=== PATIENT | female | born 1965 | race Caucasian/White ===

== ENCOUNTER → 2016-09-18 12:41 | Outpatient (CLI) | payer MEDICAID ==
[2015-09-04 09:50] VITALS: BMI 30.8
[~2016-09-18 12:41] MED LIST: ASCORBIC ACID500 MG PO; FISH OIL 1,0001 CA1 PO; LYSINE1000 MG PO; MULTIPLE VITAMI1 TA1 PO; VITAMIN D31000 UNIT PO
== END | disposition home or self-care (01) ==
LOC: D.CT 12:41
DX: R10.9 Unspecified abdominal pain (principal)

== ENCOUNTER 2016-10-14 06:05 | Day surgery (SDC) | payer MEDICAID ==
[~2016-10-14] VITALS: Ht 160 cm; Wt 75.5 kg
[2016-10-14 07:39] LABS: HEMATOCRIT 42.7 % (36.0-48.0); HEMOGLOBIN 14.1 g/dL (12-16); MCH 31.3 pg (26.0-34.0); MCV 94.9 fL (80.0-100.0); MEAN PLATELET VOLUME 9.5 fL (7.4-10.4); RBC 4.5 10x6/uL (4.00-5.40); RDW 13.5 % (11.5-14.5); WBC 8.7 10x3/uL (4.8-10.8)
[2016-10-14 07:48] VITALS: BP 116/67; Ht 160 cm; Wt 75.5 kg
--- NOTE | 2016-10-14 10:42 | NUR ---
1020 AWAKE & ALERT. DRESSED SITTING UP IN CHAIR @ BEDSIDE. GIVEN DISCHARGE INSTRUCTIONS INCLUDING MED REC & D/C INSTRUCTIONS SHEET POST ENDOSCOPIC PROCEDURES. PT VOICED UNDERSTANDING. TO PRIVATE CAR PER WHEELCHAIR BY VOLUNTEER. HOME WITH MALE VISITOR. Robel ALMANZAR R.N.
--- NOTE | 2016-10-17 09:40 | OP ---
PATIENT NAME: EVON SOLER MEDICAL RECORD: [id number] :65 LOCATION:[facility] ADMISSION DATE: SURGEON: PAL JUSTICE MD DATE OF OPERATION: 10/14/2016 PREOPERATIVE DIAGNOSIS: History of colon polyps, in need of a surveillance colonoscopy. POSTOPERATIVE DIAGNOSES: History of colon polyps, in need of a surveillance colonoscopy with no new colonic polyps or masses. PROCEDURES: Total colonoscopy to cecum. SURGEON: Pal Justice MD REMOTE SENSING ADVISOR: None. BLOOD LOSS: Minimal. ANESTHESIA: IV sedation. COMPLICATIONS: None. Reason for the anesthesia staff being present during the procedure includes anxiety regarding the procedure. ENDOSCOPIC COURSE: The patient was conveyed to the endoscopy suite electively on 10/14/2016. IV sedation was induced by the anesthesia staff. The patient was placed in the Watts position. A digital rectal examination was performed. A colonoscope was inserted through the anus. It was easily advanced to the cecum. Following withdrawal, I irrigated and aspirated extensively. I dragged the folds. The pullback was greater than a 14-minute pullback. A retroflexed view was obtained in the rectum. There was a small anal papilla. I then unretroflexed the scope and removed it under direct vision. I will see the patient for another surveillance colonoscopy in 3 years. TRANSINT:[id number] Voice Confirmation ID: [id number] DOCUMENT ID: [id number] PAL JUSTICE MD at 0940 CC: PAL DIAZ DO [id number] DICTATION DATE: 10/14/16 0933 PUPPY SITTER: 10/14/[address] [facility] 10/14/[address] [address]
--- NOTE | 2016-10-17 09:40 | HP ---
PATIENT: EVON SOLER MEDICAL RECORD: [id number] ACCOUNT: [id number] LOCATION:[facility] : 65 ADMISSION DATE: 10/14/16 HISTORY AND PHYSICAL EXAMINATION CHIEF COMPLAINT: Colon polyps. HISTORY OF PRESENT ILLNESS: The patient underwent colonoscopy by me on 09/04/2015. This was due to fecal occult blood positivity. The patient was found to have 5 colon and rectal polyps. One of these was along the ileocecal valve. There was a tubular adenoma at 60 cm. She is to undergo surveillance colonoscopy today. The risks, possible complications, and alternatives to the procedure were explained to the patient. She elects to proceed. ALLERGIES: No known drug allergies. HOME MEDICATIONS: None. SOCIAL HISTORY: She is a smoker. I have advised her to quit smoking. PAST MEDICAL AND SURGICAL HISTORY: History of colon polyps. REVIEW OF SYSTEMS: Negative for coronary artery disease or hypertension. Negative for CVA or seizures. Negative for diabetes or thyroid problems. Negative for renal disease or hepatitis. Review of systems is negative other than as is described above. PHYSICAL EXAMINATION: GENERAL: The patient does not appear acutely ill. She does not appear chronically ill. VITAL SIGNS: Reviewed. HEAD: External ears appear normal. EYES: Extraocular movements are intact. NECK: Trachea is midline. CHEST: No intercostal retractions. PULMONARY: Nonlabored, no stridor. ABDOMEN: No peritonitis. IMPRESSION: History of colon polyps. PLAN: Will be surveillance colonoscopy. TRANSINT:[id number] Voice Confirmation ID: [id number] DOCUMENT ID: [id number] MOISÉS JUSTICE MD at 0940 CC: MOISÉS DIAZ DO [id number] DICTATION DATE: 10/14/16 0850 SALES OPERATIONS ASSISTANT: 10/14/16 0918 [facility] 10/14/16 [facility] [address] [place] [address]
== END 2016-10-14 10:20 | disposition home or self-care (01) ==
LOC: D.OPS 06:05
PROVIDERS: Anesthesiology
DX: Z12.11 Encounter for screening for malignant neoplasm of colon (principal); Z86.010 Personal history of colon polyps; D36.7 Benign neoplasm of other specified sites; F17.200 Nicotine dependence, unspecified, uncomplicated